=== PATIENT | male | born 1960 | race African-American/Black ===

== ENCOUNTER 2022-08-10 11:17 | Inpatient (IN) | payer OTHER ==
[2022-08-10 12:14] VITALS: BMI 26.4
[2022-08-10] MEDS ORDERED: guaiFENesin 200 MG/10 ML 10 ML UNIT-DOSE CUPS PO PRN (12:39)
[2022-08-10] MEDS ORDERED: NALOXONE HCL (KLOXXADO) 8 MG SPRAY NS PRN (12:39)
[2022-08-10] MEDS ORDERED: NICOTINE 10 MG CARTRIDGE (INHALER) IH PRN (12:39)
[2022-08-10] MEDS ORDERED: P-EPHED 60MG/TRIPROLIDI 2.5MG TABLET PO PRN (12:39)
[2022-08-10] MEDS ORDERED: MAGNESIUM CITRATE 300 ML BOTTLE PO PRN (12:39)
[2022-08-10] MEDS ORDERED: MAGNESIUM HYDROX 2400MG/30ML ORAL SUSPENSION 30 ML CUP PO PRN (12:39)
[2022-08-10] MEDS ORDERED: IBUPROFEN 400 MG TABLET (FP) PO PRN (12:39)
[2022-08-10] MEDS ORDERED: MAG HYDROX/AL HYDROX/SIMETH 30 ML UNIT-DOSE CUP PO PRN (12:39)
[2022-08-10] MEDS ORDERED: LOPERAMIDE HCL 2 MG CAPSULE PO PRN (12:39)
[2022-08-10 16:05] LABS: HEMATOCRIT 39.8 % (35.4-49); HEMOGLOBIN 13.2 GM/dL (11.7-16.9); MCH 29.1 pg (25.7-33.7); MCHC 33.1 g/dl (32.0-35.9); MEAN CELL VOLUME 87.9 fl (80-96); MEAN PLT VOLUME 8.1 fl (7.5-11.1); PLATELET COUNT 334 10^3/uL (134-434); RBC 4.53 M/mm3 (4.00-5.60); RDW 14.2 % (11.9-15.9); WHITE BLOOD COUNT 5.5 K/mm3 (4.0-10.0)
[2022-08-10 16:23] LABS: ALBUMIN 3.7 g/dl (3.4-5.0); BLOOD UREA NITROGEN 12.4 mg/dL (7-18); CALCIUM 8.7 mg/dL (8.5-10.1)
[2022-08-10 16:27] LABS: BILIRUBIN,TOTAL 0.4 mg/dL (0.2-1)
[2022-08-10 16:28] LABS: TOT PROT 7.5 g/dl (6.4-8.2)
[2022-08-10 17:15] LABS: SYPHILIS W/ RPR CONF REACTIVE (NONREACTIVE)
[2022-08-10] MEDS: NICOTINE 7 MG/24 HOURS TOPICAL PATCH TD SCH (18:37)
[2022-08-10] MEDS: THIAMINE HCL 100 MG TABLET (FP) PO SCH (22:43)
[2022-08-10] MEDS: MELATONIN 5 MG TABLETS PO SCH (22:43)
[2022-08-11] MEDS ORDERED: methaDONE HCL 10 MG TABLET PO SCH (09:30)
[2022-08-11] MEDS: methaDONE 80 MG, methaDONE 10 MG PO SCH (10:10)
[2022-08-11] MEDS: PRENATAL VITAMINS W/ FOLIC ACID TABLET (FP) PO SCH (10:10)
[2022-08-11] MEDS: NICOTINE 7 MG/24 HOURS TOPICAL PATCH TD SCH (10:11)
[2022-08-11 13:45] LABS: URINE APPEARANCE CLEAR; URINE BILIRUBIN NEGATIVE (NEGATIVE); URINE COLOR YELLOW; URINE GLUCOSE (UA) NEGATIVE (NEGATIVE); URINE KETONE NEGATIVE (NEGATIVE); URINE LEUK ESTERASE NEGATIVE (NEGATIVE); URINE NITRITE NEGATIVE (NEGATIVE); URINE PROTEIN NEGATIVE (NEGATIVE)
[2022-08-11] MEDS ORDERED: NICOTINE 7 MG/24 HOURS TOPICAL PATCH TD PRN (15:45)
[2022-08-11] MEDS: THIAMINE HCL 100 MG TABLET (FP) PO SCH (21:22)
[2022-08-11] MEDS: MELATONIN 5 MG TABLETS PO SCH (21:22)
[2022-08-11] MEDS: MIRTAZAPINE 15 MG TABLET (FP) PO SCH (21:24)
[2022-08-12] MEDS: methaDONE 80 MG, methaDONE 10 MG PO SCH (06:19)
[2022-08-12] MEDS: PRENATAL VITAMINS W/ FOLIC ACID TABLET (FP) PO SCH (10:07)
[2022-08-12] MEDS: MELATONIN 5 MG TABLETS PO SCH (20:59)
[2022-08-12] MEDS: THIAMINE HCL 100 MG TABLET (FP) PO SCH (20:59)
[2022-08-12] MEDS: MIRTAZAPINE 15 MG TABLET (FP) PO SCH (20:59)
[2022-08-13] MEDS: methaDONE 80 MG, methaDONE 10 MG PO SCH (06:30)
[2022-08-13] MEDS: PRENATAL VITAMINS W/ FOLIC ACID TABLET (FP) PO SCH (09:54)
[2022-08-13] MEDS: MELATONIN 5 MG TABLETS PO SCH (21:22)
[2022-08-13] MEDS: MIRTAZAPINE 15 MG TABLET (FP) PO SCH (21:22)
[2022-08-13] MEDS: THIAMINE HCL 100 MG TABLET (FP) PO SCH (21:22)
[2022-08-14] MEDS: methaDONE 80 MG, methaDONE 10 MG PO SCH (06:20)
[2022-08-14] MEDS: PRENATAL VITAMINS W/ FOLIC ACID TABLET (FP) PO SCH (09:55)
[2022-08-14] MEDS ORDERED: diphenhydrAMINE HCL 25 MG CAPSULE (FP) PO ONE (19:18)
[2022-08-14] MEDS: MIRTAZAPINE 15 MG TABLET (FP) PO SCH (21:26)
[2022-08-14] MEDS: THIAMINE HCL 100 MG TABLET (FP) PO SCH (21:26)
[2022-08-14] MEDS: diphenhydrAMINE HCL 50 MG CAPSULE PO PRN (21:28)
[2022-08-15] MEDS: methaDONE 80 MG, methaDONE 10 MG PO SCH (06:48)
[2022-08-15] MEDS: PRENATAL VITAMINS W/ FOLIC ACID TABLET (FP) PO SCH (09:44)
[2022-08-15] MEDS ORDERED: diphenhydrAMINE HCL 25 MG CAPSULE (FP) PO ONE (18:10)
[2022-08-15] MEDS: THIAMINE HCL 100 MG TABLET (FP) PO SCH (21:08)
[2022-08-15] MEDS: diphenhydrAMINE HCL 50 MG CAPSULE PO PRN (21:08)
[2022-08-15] MEDS: MIRTAZAPINE 15 MG TABLET (FP) PO SCH (21:09)
[2022-08-16] MEDS: methaDONE 80 MG, methaDONE 10 MG PO SCH (06:35)
[2022-08-16] MEDS ORDERED: CEPHALEXIN MONOHYDRATE 500 MG CAPSULE (UD) PO SCH (08:00)
[2022-08-16] MEDS: PRENATAL VITAMINS W/ FOLIC ACID TABLET (FP) PO SCH (10:24)
[2022-08-16] MEDS ORDERED: diphenhydrAMINE HCL 25 MG CAPSULE (FP) PO ONE (18:10)
[2022-08-16] MEDS: diphenhydrAMINE HCL 50 MG CAPSULE PO PRN (21:32)
[2022-08-16] MEDS: MIRTAZAPINE 15 MG TABLET (FP) PO SCH (21:32)
[2022-08-16] MEDS: THIAMINE HCL 100 MG TABLET (FP) PO SCH (21:32)
[2022-08-17] MEDS: methaDONE 80 MG, methaDONE 10 MG PO SCH (06:41)
[2022-08-17] MEDS: PRENATAL VITAMINS W/ FOLIC ACID TABLET (FP) PO SCH (09:56)
[2022-08-17] MEDS: FUROSEMIDE 20 MG TABLET (FP) PO SCH (16:35)
[2022-08-17] MEDS: ALBUTEROL SULFATE 2 MG/5 ML SOLUTION PO SCH ×2 (18:38→21:13)
[2022-08-17] MEDS: THIAMINE HCL 100 MG TABLET (FP) PO SCH (21:12)
[2022-08-17] MEDS: MIRTAZAPINE 15 MG TABLET (FP) PO SCH (21:14)
[2022-08-17] MEDS ORDERED: diphenhydrAMINE HCL 25 MG CAPSULE (FP) PO ONE (21:15)
[2022-08-17] MEDS: diphenhydrAMINE HCL 50 MG CAPSULE PO PRN (21:15)
[2022-08-18] MEDS: methaDONE 80 MG, methaDONE 10 MG PO SCH (06:31)
[2022-08-18] MEDS: ALBUTEROL SULFATE 2 MG/5 ML SOLUTION PO SCH ×3 (06:31→21:10)
[2022-08-18] MEDS: PRENATAL VITAMINS W/ FOLIC ACID TABLET (FP) PO SCH (09:58)
[2022-08-18] MEDS: FUROSEMIDE 20 MG TABLET (FP) PO SCH (09:58)
[2022-08-18] MEDS ORDERED: diphenhydrAMINE HCL 25 MG CAPSULE (FP) PO ONE (18:57)
[2022-08-18] MEDS: THIAMINE HCL 100 MG TABLET (FP) PO SCH (21:10)
[2022-08-18] MEDS: MIRTAZAPINE 15 MG TABLET (FP) PO SCH (21:10)
[2022-08-18] MEDS: hydrOXYzine PAMOATE 25 MG CAPSULE (FP) PO PRN (21:10)
[2022-08-18] MEDS: diphenhydrAMINE HCL 50 MG CAPSULE PO PRN (21:11)
[2022-08-19] MEDS: ALBUTEROL SULFATE 2 MG/5 ML SOLUTION PO SCH ×3 (06:42→21:26)
[2022-08-19] MEDS: methaDONE 80 MG, methaDONE 10 MG PO SCH (06:43)
[2022-08-19] MEDS: FUROSEMIDE 20 MG TABLET (FP) PO SCH (09:56)
[2022-08-19] MEDS: PRENATAL VITAMINS W/ FOLIC ACID TABLET (FP) PO SCH (09:57)
[2022-08-19] MEDS ORDERED: diphenhydrAMINE HCL 25 MG CAPSULE (FP) PO ONE (18:16)
[2022-08-19] MEDS: MIRTAZAPINE 15 MG TABLET (FP) PO SCH (21:26)
[2022-08-19] MEDS: THIAMINE HCL 100 MG TABLET (FP) PO SCH (21:26)
[2022-08-20] MEDS: ALBUTEROL SULFATE 2 MG/5 ML SOLUTION PO SCH ×3 (06:26→21:17)
[2022-08-20] MEDS: methaDONE 80 MG, methaDONE 10 MG PO SCH (06:26)
[2022-08-20] MEDS: FUROSEMIDE 20 MG TABLET (FP) PO SCH (09:50)
[2022-08-20] MEDS: PRENATAL VITAMINS W/ FOLIC ACID TABLET (FP) PO SCH (09:50)
[2022-08-20] MEDS: THIAMINE HCL 100 MG TABLET (FP) PO SCH (21:15)
[2022-08-20] MEDS ORDERED: diphenhydrAMINE HCL 25 MG CAPSULE (FP) PO ONE (21:16)
[2022-08-20] MEDS: MIRTAZAPINE 15 MG TABLET (FP) PO SCH (21:17)
[2022-08-21] MEDS: methaDONE 80 MG, methaDONE 10 MG PO SCH (06:05)
[2022-08-21] MEDS: ALBUTEROL SULFATE 2 MG/5 ML SOLUTION PO SCH ×3 (06:05→21:13)
[2022-08-21] MEDS: FUROSEMIDE 20 MG TABLET (FP) PO SCH (10:10)
[2022-08-21] MEDS: PRENATAL VITAMINS W/ FOLIC ACID TABLET (FP) PO SCH (10:10)
[2022-08-21] MEDS ORDERED: FUROSEMIDE 20 MG TABLET (FP) PO ONE (14:52)
[2022-08-21] MEDS: hydrOXYzine PAMOATE 25 MG CAPSULE (FP) PO PRN (21:13)
[2022-08-21] MEDS: THIAMINE HCL 100 MG TABLET (FP) PO SCH (21:13)
[2022-08-21] MEDS: MIRTAZAPINE 15 MG TABLET (FP) PO SCH (21:13)
[2022-08-21] MEDS ORDERED: diphenhydrAMINE HCL 25 MG CAPSULE (FP) PO ONE (21:14)
[2022-08-22] MEDS: methaDONE 80 MG, methaDONE 10 MG PO SCH (06:09)
[2022-08-22] MEDS: ALBUTEROL SULFATE 2 MG/5 ML SOLUTION PO SCH ×3 (06:10→21:30)
[2022-08-22] MEDS: FUROSEMIDE 20 MG TABLET (FP) PO SCH (09:29)
[2022-08-22] MEDS: PRENATAL VITAMINS W/ FOLIC ACID TABLET (FP) PO SCH (09:30)
[2022-08-22] MEDS ORDERED: diphenhydrAMINE HCL 25 MG CAPSULE (FP) PO ONE (19:05)
[2022-08-22] MEDS: THIAMINE HCL 100 MG TABLET (FP) PO SCH (21:30)
[2022-08-22] MEDS: MIRTAZAPINE 15 MG TABLET (FP) PO SCH (21:30)
[2022-08-23] MEDS: methaDONE 80 MG, methaDONE 10 MG PO SCH (06:14)
[2022-08-23] MEDS: ALBUTEROL SULFATE 2 MG/5 ML SOLUTION PO SCH ×3 (06:15→21:51)
[2022-08-23] MEDS: FUROSEMIDE 20 MG TABLET (FP) PO SCH (09:47)
[2022-08-23] MEDS: PRENATAL VITAMINS W/ FOLIC ACID TABLET (FP) PO SCH (09:47)
[2022-08-23] MEDS ORDERED: diphenhydrAMINE HCL 25 MG CAPSULE (FP) PO ONE (19:04)
[2022-08-23] MEDS: MIRTAZAPINE 15 MG TABLET (FP) PO SCH (21:50)
[2022-08-23] MEDS: THIAMINE HCL 100 MG TABLET (FP) PO SCH (21:50)
[2022-08-24] MEDS: methaDONE 80 MG, methaDONE 10 MG PO SCH (06:20)
[2022-08-24] MEDS: ALBUTEROL SULFATE 2 MG/5 ML SOLUTION PO SCH ×3 (06:20→21:21)
[2022-08-24] MEDS: METHOCARBAMOL 500 MG TABLET PO PRN (06:22)
[2022-08-24] MEDS: FUROSEMIDE 20 MG TABLET (FP) PO SCH (10:03)
[2022-08-24] MEDS: PRENATAL VITAMINS W/ FOLIC ACID TABLET (FP) PO SCH (10:04)
[2022-08-24] MEDS ORDERED: diphenhydrAMINE HCL 25 MG CAPSULE (FP) PO ONE (18:57)
[2022-08-24] MEDS: THIAMINE HCL 100 MG TABLET (FP) PO SCH (21:17)
[2022-08-24] MEDS: MIRTAZAPINE 15 MG TABLET (FP) PO SCH (21:17)
[2022-08-24] MEDS: diphenhydrAMINE HCL 50 MG CAPSULE PO PRN (21:18)
[2022-08-25] MEDS: ALBUTEROL SULFATE 2 MG/5 ML SOLUTION PO SCH ×3 (06:06→21:38)
[2022-08-25] MEDS: methaDONE 80 MG, methaDONE 10 MG PO SCH (06:06)
[2022-08-25] MEDS: PRENATAL VITAMINS W/ FOLIC ACID TABLET (FP) PO SCH (09:11)
[2022-08-25 09:38] LABS: ALBUMIN 3.6 g/dl (3.4-5.0); BLOOD UREA NITROGEN 18.7 mg/dL (7-18); CALCIUM 9.4 mg/dL (8.5-10.1)
[2022-08-25 09:42] LABS: BILIRUBIN,TOTAL 0.5 mg/dL (0.2-1)
[2022-08-25 09:43] LABS: TOT PROT 7.3 g/dl (6.4-8.2)
[2022-08-25] MEDS: FUROSEMIDE 20 MG TABLET (FP) PO SCH (12:00)
[2022-08-25] MEDS ORDERED: diphenhydrAMINE HCL 25 MG CAPSULE (FP) PO ONE (19:09)
[2022-08-25] MEDS: THIAMINE HCL 100 MG TABLET (FP) PO SCH (21:39)
[2022-08-25] MEDS: diphenhydrAMINE HCL 50 MG CAPSULE PO PRN (21:39)
[2022-08-25] MEDS: MIRTAZAPINE 15 MG TABLET (FP) PO SCH (21:40)
[2022-08-26] MEDS: methaDONE 80 MG, methaDONE 10 MG PO SCH (06:50)
[2022-08-26] MEDS: ALBUTEROL SULFATE 2 MG/5 ML SOLUTION PO SCH ×3 (06:50→21:37)
[2022-08-26] MEDS: FUROSEMIDE 20 MG TABLET (FP) PO SCH (06:50)
[2022-08-26] MEDS: PRENATAL VITAMINS W/ FOLIC ACID TABLET (FP) PO SCH (09:36)
[2022-08-26] MEDS: MIRTAZAPINE 15 MG TABLET (FP) PO SCH (21:35)
[2022-08-26] MEDS: THIAMINE HCL 100 MG TABLET (FP) PO SCH (21:35)
[2022-08-26] MEDS ORDERED: diphenhydrAMINE HCL 25 MG CAPSULE (FP) PO ONE (21:39)
[2022-08-26] MEDS: diphenhydrAMINE HCL 50 MG CAPSULE PO PRN (21:39)
[2022-08-27] MEDS: ALBUTEROL SULFATE 2 MG/5 ML SOLUTION PO SCH ×3 (06:10→21:28)
[2022-08-27] MEDS: methaDONE 80 MG, methaDONE 10 MG PO SCH (06:10)
[2022-08-27] MEDS: ACETAMINOPHEN 325 MG TABLET (FP) PO PRN ×2 (06:13→12:01)
[2022-08-27] MEDS: PRENATAL VITAMINS W/ FOLIC ACID TABLET (FP) PO SCH (10:00)
[2022-08-27] MEDS: HYDROCHLOROTHIAZIDE 12.5 MG CAPSULE (FP) PO SCH (10:00)
[2022-08-27] MEDS ORDERED: IBUPROFEN 400 MG TABLET (FP) PO PRN (14:24)
[2022-08-27] MEDS: MIRTAZAPINE 15 MG TABLET (FP) PO SCH (21:29)
[2022-08-27] MEDS: THIAMINE HCL 100 MG TABLET (FP) PO SCH (21:29)
[2022-08-27] MEDS ORDERED: diphenhydrAMINE HCL 25 MG CAPSULE (FP) PO ONE (21:30)
[2022-08-27] MEDS: diphenhydrAMINE HCL 50 MG CAPSULE PO PRN (21:31)
[2022-08-28] MEDS: methaDONE 80 MG, methaDONE 10 MG PO SCH (06:06)
[2022-08-28] MEDS: ALBUTEROL SULFATE 2 MG/5 ML SOLUTION PO SCH (06:06)
[2022-08-28] MEDS: ACETAMINOPHEN 325 MG TABLET (FP) PO PRN (06:08)
[2022-08-28] MEDS ORDERED: BENZOCAINE 20 % GEL TUBE MM PRN (09:29)
[2022-08-28] MEDS: PRENATAL VITAMINS W/ FOLIC ACID TABLET (FP) PO SCH (09:29)
[2022-08-28] MEDS: HYDROCHLOROTHIAZIDE 12.5 MG CAPSULE (FP) PO SCH (09:29)
[2022-08-28] MEDS ORDERED: diphenhydrAMINE HCL 25 MG CAPSULE (FP) PO ONE (19:11)
[2022-08-28] MEDS: hydrOXYzine PAMOATE 25 MG CAPSULE (FP) PO PRN (21:32)
[2022-08-28] MEDS: METHOCARBAMOL 500 MG TABLET PO PRN (21:33)
[2022-08-28] MEDS: THIAMINE HCL 100 MG TABLET (FP) PO SCH (21:33)
[2022-08-28] MEDS: MIRTAZAPINE 15 MG TABLET (FP) PO SCH (21:33)
[2022-08-28] MEDS: diphenhydrAMINE HCL 50 MG CAPSULE PO PRN (21:34)
[2022-08-28] MEDS: ALBUTEROL SO4 HFA INHALER IH PRN (21:37)
[2022-08-29] MEDS: methaDONE 80 MG, methaDONE 10 MG PO SCH (06:25)
[2022-08-29] MEDS: PRENATAL VITAMINS W/ FOLIC ACID TABLET (FP) PO SCH (09:31)
[2022-08-29] MEDS: HYDROCHLOROTHIAZIDE 12.5 MG CAPSULE (FP) PO SCH (09:31)
[2022-08-29] MEDS ORDERED: diphenhydrAMINE HCL 25 MG CAPSULE (FP) PO ONE (18:23)
[2022-08-29] MEDS: THIAMINE HCL 100 MG TABLET (FP) PO SCH (21:14)
[2022-08-29] MEDS: MIRTAZAPINE 15 MG TABLET (FP) PO SCH (21:14)
[2022-08-29] MEDS: diphenhydrAMINE HCL 50 MG CAPSULE PO PRN (21:15)
[2022-08-30] MEDS: methaDONE 80 MG, methaDONE 10 MG PO SCH (06:16)
[2022-08-30] MEDS: HYDROCHLOROTHIAZIDE 12.5 MG CAPSULE (FP) PO SCH (09:34)
[2022-08-30] MEDS: PRENATAL VITAMINS W/ FOLIC ACID TABLET (FP) PO SCH (09:34)
[2022-08-30] MEDS ORDERED: diphenhydrAMINE HCL 25 MG CAPSULE (FP) PO ONE (18:36)
[2022-08-30] MEDS: THIAMINE HCL 100 MG TABLET (FP) PO SCH (21:06)
[2022-08-30] MEDS: diphenhydrAMINE HCL 50 MG CAPSULE PO PRN (21:07)
[2022-08-30] MEDS: MIRTAZAPINE 15 MG TABLET (FP) PO SCH (21:07)
[2022-08-31] MEDS: methaDONE 80 MG, methaDONE 10 MG PO SCH (06:03)
[2022-08-31] MEDS: PRENATAL VITAMINS W/ FOLIC ACID TABLET (FP) PO SCH (09:45)
[2022-08-31] MEDS: HYDROCHLOROTHIAZIDE 12.5 MG CAPSULE (FP) PO SCH ×2 (09:45→21:15)
[2022-08-31] MEDS ORDERED: diphenhydrAMINE HCL 25 MG CAPSULE (FP) PO ONE (18:07)
[2022-08-31] MEDS: THIAMINE HCL 100 MG TABLET (FP) PO SCH (21:15)
[2022-08-31] MEDS: MIRTAZAPINE 15 MG TABLET (FP) PO SCH (21:15)
[2022-09-01] MEDS: methaDONE 80 MG, methaDONE 10 MG PO SCH (06:15)
[2022-09-01] MEDS: PRENATAL VITAMINS W/ FOLIC ACID TABLET (FP) PO SCH (09:40)
[2022-09-01] MEDS: HYDROCHLOROTHIAZIDE 12.5 MG CAPSULE (FP) PO SCH (09:40)
[2022-09-01] MEDS ORDERED: HYDROCHLOROTHIAZIDE 25 MG TABLET (FP) PO SCH ×2 (13:45→22:00)
[2022-09-01] MEDS: HYDROCHLOROTHIAZIDE 25 MG TABLET (FP) PO SCH (14:51)
[2022-09-01] MEDS ORDERED: diphenhydrAMINE HCL 25 MG CAPSULE (FP) PO ONE (19:10)
[2022-09-01] MEDS: THIAMINE HCL 100 MG TABLET (FP) PO SCH (21:11)
[2022-09-01] MEDS: ALBUTEROL SO4 HFA INHALER IH PRN (21:11)
[2022-09-01] MEDS: MIRTAZAPINE 15 MG TABLET (FP) PO SCH (21:12)
[2022-09-01] MEDS: METHOCARBAMOL 500 MG TABLET PO PRN (21:12)
[2022-09-01] MEDS: diphenhydrAMINE HCL 50 MG CAPSULE PO PRN (21:13)
[2022-09-02] MEDS: HYDROCHLOROTHIAZIDE 25 MG TABLET (FP) PO SCH ×2 (06:36→12:04)
[2022-09-02] MEDS: methaDONE 80 MG, methaDONE 10 MG PO SCH (06:37)
[2022-09-02] MEDS: PRENATAL VITAMINS W/ FOLIC ACID TABLET (FP) PO SCH (09:48)
[2022-09-02] MEDS ORDERED: diphenhydrAMINE HCL 25 MG CAPSULE (FP) PO ONE (18:42)
[2022-09-02] MEDS: MIRTAZAPINE 15 MG TABLET (FP) PO SCH (21:01)
[2022-09-02] MEDS: THIAMINE HCL 100 MG TABLET (FP) PO SCH (21:01)
[2022-09-02] MEDS: diphenhydrAMINE HCL 50 MG CAPSULE PO PRN (21:02)
[2022-09-03] MEDS: HYDROCHLOROTHIAZIDE 25 MG TABLET (FP) PO SCH ×2 (06:17→13:09)
[2022-09-03] MEDS: methaDONE 80 MG, methaDONE 10 MG PO SCH (06:18)
[2022-09-03] MEDS: PRENATAL VITAMINS W/ FOLIC ACID TABLET (FP) PO SCH (09:59)
[2022-09-03] MEDS ORDERED: diphenhydrAMINE HCL 25 MG CAPSULE (FP) PO ONE (18:37)
[2022-09-03] MEDS: THIAMINE HCL 100 MG TABLET (FP) PO SCH (21:33)
[2022-09-03] MEDS: MIRTAZAPINE 15 MG TABLET (FP) PO SCH (21:34)
[2022-09-03] MEDS: diphenhydrAMINE HCL 50 MG CAPSULE PO PRN (21:34)
[2022-09-03] MEDS: METHOCARBAMOL 500 MG TABLET PO PRN (21:51)
[2022-09-04] MEDS: HYDROCHLOROTHIAZIDE 25 MG TABLET (FP) PO SCH ×2 (06:48→13:55)
[2022-09-04] MEDS: methaDONE 80 MG, methaDONE 10 MG PO SCH (06:48)
[2022-09-04] MEDS: PRENATAL VITAMINS W/ FOLIC ACID TABLET (FP) PO SCH (09:41)
[2022-09-04] MEDS ORDERED: diphenhydrAMINE HCL 25 MG CAPSULE (FP) PO ONE (19:07)
[2022-09-04] MEDS: METHOCARBAMOL 500 MG TABLET PO PRN (21:27)
[2022-09-04] MEDS: THIAMINE HCL 100 MG TABLET (FP) PO SCH (21:27)
[2022-09-04] MEDS: diphenhydrAMINE HCL 50 MG CAPSULE PO PRN (21:27)
[2022-09-04] MEDS: MIRTAZAPINE 15 MG TABLET (FP) PO SCH (21:27)
[2022-09-05] MEDS: methaDONE 80 MG, methaDONE 10 MG PO SCH (06:16)
[2022-09-05] MEDS: HYDROCHLOROTHIAZIDE 25 MG TABLET (FP) PO SCH ×2 (06:16→13:22)
[2022-09-05] MEDS: PRENATAL VITAMINS W/ FOLIC ACID TABLET (FP) PO SCH (09:20)
[2022-09-05] MEDS ORDERED: diphenhydrAMINE HCL 25 MG CAPSULE (FP) PO ONE (18:59)
[2022-09-05] MEDS: MIRTAZAPINE 15 MG TABLET (FP) PO SCH (21:11)
[2022-09-05] MEDS: THIAMINE HCL 100 MG TABLET (FP) PO SCH (21:11)
[2022-09-05] MEDS: METHOCARBAMOL 500 MG TABLET PO PRN (21:12)
[2022-09-05] MEDS: diphenhydrAMINE HCL 50 MG CAPSULE PO PRN (21:13)
[2022-09-06] MEDS: HYDROCHLOROTHIAZIDE 25 MG TABLET (FP) PO SCH ×2 (06:38→13:15)
[2022-09-06] MEDS: methaDONE 80 MG, methaDONE 10 MG PO SCH (06:38)
[2022-09-06 06:43] VITALS: RESP 16
[2022-09-06] MEDS: PRENATAL VITAMINS W/ FOLIC ACID TABLET (FP) PO SCH (09:27)
[2022-09-06] MEDS ORDERED: diphenhydrAMINE HCL 25 MG CAPSULE (FP) PO ONE (19:15)
[2022-09-06] MEDS: MIRTAZAPINE 15 MG TABLET (FP) PO SCH (21:10)
[2022-09-06] MEDS: THIAMINE HCL 100 MG TABLET (FP) PO SCH (21:10)
[2022-09-06] MEDS: METHOCARBAMOL 500 MG TABLET PO PRN (21:10)
[2022-09-06] MEDS: diphenhydrAMINE HCL 50 MG CAPSULE PO PRN (21:12)
[2022-09-07] MEDS ORDERED: methaDONE 80 MG, methaDONE 10 MG PO SCH (06:00)
[2022-09-07] MEDS ORDERED: methaDONE HCL 40 MG DISPERSABLE TABLET PO SCH (06:00)
[2022-09-07] MEDS: HYDROCHLOROTHIAZIDE 25 MG TABLET (FP) PO SCH (06:17)
[2022-09-07 06:38] VITALS: TEMP 97.1
[2022-09-07 08:48] VITALS: BP 112/71; PULSE 74
[2022-09-07] MEDS: PRENATAL VITAMINS W/ FOLIC ACID TABLET (FP) PO SCH (09:36)
== END 2022-09-07 12:32 | disposition home or self-care (01) | DRG 772 ==
LOC: YASAS 11:17 → Y3E 17:35
PROVIDERS: ADMIT Allergy & Immunology; ATTEND Surgery
PROC: HZ42ZZZ Group Counseling for Substance Abuse Treatment, Cognitive-Behavioral (ICD-10-PCS; principal; 2022-08-10)
DX: F11.20 Opioid dependence, uncomplicated (principal); F17.210 Nicotine dependence, cigarettes, uncomplicated; F41.9 Anxiety disorder, unspecified; F32.A Depression, unspecified; F19.24 Other psychoactive substance dependence with psychoactive substance-induced mood disorder; F19.282 Other psychoactive substance dependence with psychoactive substance-induced sleep disorder; R60.0 Localized edema; J45.909 Unspecified asthma, uncomplicated; Z88.0 Allergy status to penicillin; Z86.11 Personal history of tuberculosis; Z56.0 Unemployment, unspecified
CPT/HCPCS: 36415; 71046-TC-FY; 80053; 81003; 85027; 86593; 86780; 86803; 93005; 93010; C9803-CS; U0003; U0005